=== PATIENT | male | born 1945 | race Two or more races ===

== ENCOUNTER 2017-11-07 08:03 | Emergency (ER) | payer MEDICARE ==
[~2017-11-07] VITALS: Ht 177.8 cm; Wt 105.1 kg
[2017-11-07] MEDS ORDERED: ONDANSETRON 2MG/ML, 2ML IVPush ONE (09:30)
[2017-11-07] MEDS ORDERED: MORPHINE SULFATE 4 MG/ML, 1ML IVPush PRN (09:30)
[2017-11-07] MEDS ORDERED: SODIUM CHLORIDE FLUSH 10ML SYR IVF ONE (09:30)
[2017-11-07] MEDS ORDERED: PROMETHAZINE/COD. 10MG/6.25MG/5 ML ORAL SOL PO ONE (09:30)
[2017-11-07] MEDS ORDERED: SODIUM CHLORIDE 0.9% 1,000ML IVBOLUS ONE (09:30)
[2017-11-07 09:36] LABS: HEMATOCRIT 46.7 % (39.2-51.8); HEMOGLOBIN 16.1 g/dL (13.7-18.0); WHITE BLOOD COUNT 5.6 x10^3/uL (3.4-10)
[2017-11-07 09:47] LABS: ASPARTATE AMINO TRANSFERASE 31 U/L (15-37); BLOOD UREA NITROGEN 10 mg/dL (7-18)
[2017-11-07] MEDS ORDERED: MORPHINE SULFATE 4 MG/ML, 1ML ONE (09:48)
[2017-11-07] MEDS ORDERED: ONDANSETRON 2MG/ML, 2ML ONE (09:48)
[2017-11-07 10:41] LABS: RAPID INFLUENZA A Negative (Negative); RAPID INFLUENZA B Negative (Negative)
[2017-11-07 11:24] VITALS: BP 118/51
== END 2017-11-07 11:27 | disposition home or self-care (01) ==
LOC: ED 11:11
DX: B34.9 Viral infection, unspecified (principal); R05 Cough
CPT/HCPCS: 36415; 71010; 76700; 80053; 81003; 83605; 83690; 85025; 87040; 87400; 96374; 96375; 99285; J2405

== ENCOUNTER 2020-09-03 22:39 | Emergency (ER) | payer MEDICARE ==
[~2020-09-03] VITALS: Ht 177.8 cm; Wt 106.4 kg
[2020-09-03] MEDS ORDERED: ONDANSETRON 2MG/ML, 2ML ONE (23:25)
[2020-09-03 23:27] LABS: BASOPHILS % (AUTO) 0 % (0-1); EOSINOPHILS % (AUTO) 0 % (1-7); LYMPHOCYTES % (AUTO) 10 % (22-44); MEAN CORPUSCULAR HEMOGLOBIN 32.3 pg (27.5-34.5); MEAN CORPUSCULAR HGB CONC 33.9 g/dL (33.2-36.2); MEAN PLATELET VOLUME 9.2 fL (7.4-10.4); MONOCYTES % (AUTO) 12 % (2-9); NEUTROPHILS % (AUTO) 78 % (42-75); PLATELET COUNT 147 x10^3/uL (130-400); RED BLOOD COUNT 4.97 x10^6/uL (4.38-5.82); RED CELL DISTRIBUTION WIDTH 14.4 % (9.4-14.8)
[2020-09-03] MEDS ORDERED: SODIUM CHLORIDE FLUSH 10ML SYR IVF ONE (23:30)
[2020-09-03] MEDS ORDERED: SODIUM CHLORIDE 0.9% 1,000ML IVBOLUS ONE (23:30)
[2020-09-03] MEDS ORDERED: ONDANSETRON 2MG/ML, 2ML IVPush ONE (23:30)
[2020-09-03 23:36] LABS: MD NO
[2020-09-03 23:39] LABS: ALANINE AMINOTRANSFERASE 58 U/L (12-78); ALBUMIN 3.2 g/dL (3.4-5.0); ANION GAP 6 mmol/L (5-15); CALCIUM 8.3 mg/dL (8.5-10.1); CHLORIDE 109 mmol/L (98-107); CREATININE 0.83 mg/dL (0.7-1.3)
[2020-09-03 23:41] LABS: ALKALINE PHOSPHATASE 102 U/L (45-117); BILIRUBIN,TOTAL 0.4 mg/dL (0.2-1.0); TOTAL PROTEIN 7.8 g/dL (6.4-8.2)
--- NOTE | 2020-09-04 01:27 | NUR ---
REPORT FROM GILBERTO JAUREGUI, PT CARE TRANSFERRED AT THIS TIME. PT CAME IN FOR N/V, TO BE PO CHALLENGED. IF ABLE TO MANAGED THEN DC. BO
[2020-09-04] MEDS ORDERED: POTASSIUM CHLORIDE 20 MEQ TAB.ER.PRT PO ONE (01:30)
[2020-09-04 02:18] VITALS: BP 149/75
--- NOTE | 2020-09-04 02:21 | NUR ---
Patient/SPOUSE given discharge instructions WITH ESTHETIC DERMATOLOGIST PHONE and they have confirmed that they understand the instructions. Patient ambulatory with steady gait.NAD, DENIES ADDITIONAL QUESTIONS OR NEEDS STATES HE FEELS MUCH BETTER. NO PT BELONGINGS LEFT IN ROOM AFTER DC.
== END 2020-09-04 02:23 | disposition home or self-care (01) ==
LOC: ED 09-04 02:15
DX: R11.2 Nausea with vomiting, unspecified (principal); R10.9 Unspecified abdominal pain; R94.31 Abnormal electrocardiogram [ECG] [EKG]
CPT/HCPCS: 36415; 71045; 80053; 83690; 85025; 93005; 96361; 96374; 99285; J2405; J7030

== ENCOUNTER 2020-09-07 10:46 | Emergency (ER) | payer MEDICARE ==
[~2020-09-07] VITALS: Ht 185.4 cm; Wt 105.3 kg
[2020-09-07 11:39] LABS: BASOPHILS % (AUTO) 0 % (0-1); EOSINOPHILS % (AUTO) 0 % (1-7); LYMPHOCYTES % (AUTO) 26 % (22-44); MD NO; MEAN CORPUSCULAR HEMOGLOBIN 32.2 pg (27.5-34.5); MEAN CORPUSCULAR HGB CONC 33.9 g/dL (33.2-36.2); MEAN PLATELET VOLUME 8.8 fL (7.4-10.4); MONOCYTES % (AUTO) 11 % (2-9); NEUTROPHILS % (AUTO) 63 % (42-75); PLATELET COUNT 137 x10^3/uL (130-400); RED BLOOD COUNT 5.06 x10^6/uL (4.38-5.82); RED CELL DISTRIBUTION WIDTH 14.6 % (9.4-14.8)
[2020-09-07 11:50] LABS: ALANINE AMINOTRANSFERASE 55 U/L (12-78); ALBUMIN 3.2 g/dL (3.4-5.0); ANION GAP 7 mmol/L (5-15); CALCIUM 8.4 mg/dL (8.5-10.1); CHLORIDE 107 mmol/L (98-107); CREATININE 0.79 mg/dL (0.7-1.3)
[2020-09-07 11:58] LABS: ALKALINE PHOSPHATASE 94 U/L (45-117); BILIRUBIN,TOTAL 0.6 mg/dL (0.2-1.0); TOTAL PROTEIN 7.6 g/dL (6.4-8.2)
[2020-09-07 12:40] LABS: MICROSCOPIC INDICATED
[2020-09-07] MEDS ORDERED: ACETAMINOPHEN 500 MG TABLET ONE (13:17)
[2020-09-07] MEDS ORDERED: ACETAMINOPHEN 500 MG TABLET PO ONE (13:30)
[2020-09-07 13:39] VITALS: BP 124/74
== END 2020-09-07 13:40 | disposition home or self-care (01) ==
LOC: ED 11:28
DX: R50.9 Fever, unspecified (principal); Z20.828 Contact with and (suspected) exposure to other viral communicable diseases; B34.9 Viral infection, unspecified; R11.2 Nausea with vomiting, unspecified; R09.02 Hypoxemia
CPT/HCPCS: 36415; 71045; 80053; 81001; 84145; 85025; 86140; 87086; 87635; 99284